=== PATIENT | male | born 1940 | race Caucasian/White ===

== ENCOUNTER 2021-06-24 09:17 | Emergency (ER) | payer MEDICARE, SELFPAY ==
[2021-06-24 09:18] VITALS: BP 174/102; PULSE 68; RESP 14; TEMP 36.2; O2SAT 98; BMI 29.4
--- NOTE | 2021-06-24 09:35 | EKG12_ITS ---
Test Reason : DIZZINESS Blood Pressure : / mmHG Vent. Rate : 066 BPM Atrial Rate : 066 BPM P-R Int : 230 ms QRS Dur : 092 ms QT Int : 416 ms P-R-T Axes : 063 026 036 degrees QTc Int : 436 ms Sinus rhythm with sinus arrhythmia with 1st degree A-V block Otherwise normal ECG Confirmed by NIC HAWKINS, MILAD ([id number]), associate entertainment editor HUMBERTO UNDERWOOD ([id number]) on 06/29/2021 9:03:12 AM Referred By: ALENA Confirmed By:MILAD LUCERO MD
--- NOTE | 2021-06-24 09:35 | CT_ITS ---
STUDY: CTA HEAD AND NECK WITH CONTRAST REASON FOR EXAM: Male, 80 years old. Hypertension. RADIATION DOSAGE (If Supplied By Facility): CTDIvol = ( 32.34 ) mGy, DLP = ( 1518.98 ) mGycm TECHNIQUE: CT angiography was performed with a multi-detector CT scanner. Data acquisition was obtained from the skull base through the vertex following intravenous administration of IV- 100 mL IsoVue 370. MIP images were reconstructed from the axial data set. Post-processing of the angiographic images was performed, with multiplanar reformation and 3D reconstruction. Individualized dose optimization techniques were used for this CT. COMPARISON: No relevant priors. FINDINGS: Normal bilateral petrous carotid arteries. There is calcified plaque formation of the right cavernous carotid artery, without a cross-sectional luminal stenosis. There is calcified plaque formation of the left cavernous carotid artery, without a cross-sectional luminal stenosis. Normal right A1 segments of the anterior cerebral artery. Normal left A1 segments of the anterior cerebral artery. Normal intact anterior communicating artery (ACOM). Normal bilateral A2 segments of the anterior cerebral arteries. Normal right M1 and M2 segments of the middle cerebral arteries, with a normal M1 bifurcation. Normal left M1 and M2 segments of the middle cerebral arteries, with a normal M1 bifurcation. Normal right posterior communicating artery (PCOM). Normal left posterior communicating artery (PCOM). Normal bilateral vertebral arteries. Normal basilar artery with a normal basilar bifurcation. The visualized bilateral superior cerebellar (SCA) arteries are normal. Normal bilateral P1, P2 and visualized P3 segments of the posterior cerebral arteries. There is no demonstrated aneurysm of the [place]. Mild degree of cerebral atrophy. Decreased bilateral periventricular attenuation in keeping with microvascular disease. Tiny bilateral calcifications of the basal ganglia. This is a normal variant. AORTIC ARCH: Normal visualized aortic arch. Normal origins of the brachiocephalic, left common carotid, and left subclavian arteries. RIGHT CAROTID ARTERIES: Normal right common carotid artery (CCA). Normal right common carotid bulb. Normal origin of the right internal carotid (ICA) artery without a hemodynamically significant stenosis. Normal visualized cervical portion of the right internal carotid artery. Normal origin of the right external carotid artery (ECA). LEFT CAROTID ARTERIES: Normal left common carotid artery (CCA). Normal left common carotid bulb. Normal origin of the left internal carotid (ICA) artery without a hemodynamically significant stenosis. Normal visualized cervical portion of the left internal carotid artery. Normal origin of the left external carotid artery (ECA). VERTEBRAL ARTERIES: Normal bilateral vertebral arteries. CT/CTA Head AND Neck W/ Contrast IMPRESSION: Cerebral atrophy. Nonstenotic atherosclerotic plaque at the level of the cavernous portions of the internal carotid arteries bilaterally. Electronically Signed: Avelino Guo MD at 10:43 EDT , Service support ,
[2021-06-24 09:36] VITALS: BP 161/95; PULSE 66; RESP 12; O2SAT 96
[2021-06-24 09:48] LABS: Absolute Lymphocyte Count 1.94 X10^3/uL (0.83-4.51); Absolute Neutrophil Count 3.3 X10^3/uL (2.0-7.7); Basophil# 0.02 X10^3/uL; Basophil% 0.3 % (0-1); Eosinophil# 0.11 X10^3/uL; Eosinophils% 1.9 % (0-5); Hematocrit 45.9 % (40-54); Hemoglobin 15.8 g/dL (13.0-16.5); Lymphocyte # 1.94 X10^3/ul (0.83-4.51); Lymphocyte % 33.6 % (19-41); Mean Corp Hgb Conc 34.4 g/dL (32-36); Mean Corpuscular Hgb 32.3 pg (27.0-32.0); Mean Corpuscular Volume 93.9 fL (80-94); Mean Platelet Vol. 8.7 fl (6.2-12.0); Monocyte% 6.9 % (0-10); NRBC Flagged by Analyzer 0 % (0-5); Neutrophil # 3.28 X10^3/uL (2.7-7.7); Platelet Count 195 K/mm3 (150-450); RBC Distribution Width CV 12.9 % (11.6-14.6); RBC Distribution Width SD 43.9 fl (35.1-43.9); Red Blood Count 4.89 M/mm3 (4.6-6.2); White Blood Count 5.8 K/mm3 (4.4-11.0)
[2021-06-24 10:02] LABS: Anion Gap 10 (5-15); BUN 14 mg/dL (7-18); BUN/Creat Ratio 14.4 RATIO (10-20); Calcium,Total 8.2 mg/dL (8.5-10.1); Chloride 106 mmol/L (98-107); Creatinine, Serum 0.97 mg/dL (0.70-1.30); EST Glomerular Filtration Rate 79 mL/min (>60); Est Glom Filt Rate - Afr Amer 96 mL/min (>60); Estimated Creatinine Clearance 63.76 ml/min; Glucose 157 mg/dL (74-106); Potassium 3.9 mmol/L (3.5-5.1); Sodium Level 139 mmol/L (136-145)
[2021-06-24] MEDS: Ondansetron 4 MG/2 ML Vial IV (10:03)
[2021-06-24 13:15] VITALS: BP 158/94; PULSE 60; RESP 18
[2021-06-24] MEDS: Meclizine HCl 25 MG Tablet PO (13:18)
[2021-06-24] MEDS: Lisinopril 40 MG Tablet PO (13:18)
--- NOTE | 2021-06-24 13:55 | ED.RN ---
pt walked with steady gait. pt states not dizzy but maybe alittle lightheaded and just doesnt feel right. dr allen aware
--- NOTE | 2021-06-24 14:06 | EX.ED.DYSGE1 ---
HPI History of Present Illness Chief Complaint: Dizziness Informant: patient and spouse/S.O. Onset/Context/Timing Onset: Days Narrative Narrative: Patient presents with vertigo. He states he has been feeling a little off the past few days when he walks, but nothing to be too concerned about. This morning after getting up out of bed he describes vertigo. He did have emesis. He states his blood pressure has been closely monitored by his PCP and they did noted to be up today. He did not take his morning blood pressure meds. Patient does report worsened symptoms when he turns his head side to side. [facility] Medical History High cholesterol HTN (hypertension) Home Medications Lipitor 06/24/21 [History Last Taken Unknown] lisinopril 06/24/21 [History Last Taken Unknown] meclizine [Antivert] 50 mg PO BID PRN #10 tab 06/24/21 [Rx Last Taken Unknown] Allergy/AdvReac Type Severity Reaction Status Date / Time No Known Allergies Allergy Verified 06/24/21 09:21 Social History Smoking Status: Never smoker ROS ROS ED Constitutional Constitutional ED: Denies chills or fever(s) Eyes Eyes: Denies change in vision ENT ENT ED: Denies sore throat Cardiovascular Cardiovascular: Denies chest pain Respiratory/Chest Respiratory/Chest: Denies cough or dyspnea Gastrointestinal Gastrointestinal: Reports nausea and vomiting; Denies abdominal pain or diarrhea Genitourinary Genitourinary ED: Denies dysuria Musculoskeletal Musculoskeletal: Denies back pain or neck pain Integumentary Denies rash Neurologic Neurologic: Denies headache(s), paresthesias or weakness Psychiatric Psychiatric: Denies anxiety or depression Allergic/Immunologic Allergic/Immunologic ED: Denies urticaria EXAM Physical Exam Const Vital Signs: 06/24/21 09:18 06/24/21 09:36 06/24/21 09:39 Temperature 97.2 F L Temperature Source Temporal Pulse Rate 68 66 Respiratory Rate 14 12 Respiratory Effort Normal Non-Labored Respiratory Pattern Normal Blood Pressure 174/102 H 161/95 H Blood Pressure Mean 126 117 Pulse Ox 98 96 Oxygen Delivery Method Room Air Room Air 06/24/21 13:15 Temperature Temperature Source Pulse Rate 60 Respiratory Rate 18 Respiratory Effort Respiratory Pattern Blood Pressure 158/94 H Blood Pressure Mean 115 Pulse Ox Oxygen Delivery Method Room Air Positive well nourished and well developed General Appearance ED: well developed HEENT Reports normocephalic, head/scalp atraumatic and moist mucous membranes Eyes PERRL and EOMs intact bilaterally Neck supple Chest Wall inspection of chest normal and palpation of chest normal Resp normal respiratory effort and clear to auscultation bilaterally Cardio regular rate and regular rhythm GI normal to inspection, nondistended, normoactive bowel sounds Palpation: soft Extremity normal to inspection Neuro oriented x3, CN's II-XII intact bilaterally and no sensory deficits noted Neuro Narrative: Normal cerebellar testing. NIH equals 0. Sensorium / Orientation: alert Motor Exam: strength 5/5 throughout Psych mental status grossly normal Skin no rashes or lesions noted MDM MDM MDM Narrative Medical decision making narrative: Lab work, EKG, CTA head and neck obtained. Lab Data Attestation: I reviewed the patient's lab results. Labs: Laboratory Results - last 24 hr 06/24/21 06/24/21 09:35 09:35 WBC 5.8 RBC 4.89 Hgb 15.8 Hct 45.9 MCV 93.9 MCH 32.3 H MCHC 34.4 RDW Std Deviation 43.9 RDW Coeff of [place] 12.9 Plt Count 195 MPV 8.7 Immature Gran % (Auto) 0.300 Neut % (Auto) 57.0 Lymph % (Auto) 33.6 [place] % (Auto) 6.9 Eos % (Auto) 1.9 Baso % (Auto) 0.3 Absolute Neuts (auto) 3.3 Absolute Lymphs (auto) 1.94 Nucleated RBC % 0 Sodium 139 Potassium 3.9 Chloride 106 Carbon Dioxide 23.0 Anion Gap 10 BUN 14 Creatinine 0.97 Estim Creat Clear Calc 63.76 Est GFR (MDRD) Af Amer 96 Est GFR (MDRD) Non-Af 79 BUN/Creatinine Ratio 14.4 Glucose 157 H Calcium 8.2 L Radiography Diagnostic Testing: Radiology Impression Head/Neck CTA 06/24/21 09:35 IMPRESSION: Cerebral atrophy. Nonstenotic atherosclerotic plaque at the level of the cavernous portions of the internal carotid arteries bilaterally. Electronically Signed: Avelino Guo MD at 10:43 EDT , Service support , EKG Initial EKG: Attestation: I personally reviewed and interpreted this EKG as follows: Interpretation: Sinus Rhythm (Sinus at 66 with no acute ischemia.) Treatment and Re-Evaluation Comments:: Patient was given Zofran for nausea. Work-up is unremarkable. Patient was given a dose of p.o. Antivert and his normal blood pressure medication. Patient is able to get up and ambulate in the emergency room. He states he does not quite feel normal but does not feel dizzy or off balance. Patient will be given prescription for Antivert and return instructions are provided. Discharge Plan Triage Chief Complaint: Dizziness ED Provider: Estelita Davidson Dx/Rx/DC Orders Clinical Impression: Benign positional vertigo Instructions: ED BPV Vertigo Prescriptions: New Antivert 50 mg tablet 50 mg PO BID PRN (Reason: dizziness) Qty: 10 RF: 0 No Action Lipitor RF: 0 lisinopril RF: 0 Primary Care Provider: Isaac Suh Referrals: Isaac Suh MD [Primary Care Provider] - 1-2 Weeks Disposition Disposition: Home, Self Care Discharge Date/Time: 06/24/21 14:58
[2021-06-24 14:56] VITALS: BP 145/86; PULSE 59; RESP 18
== END 2021-06-24 14:58 | disposition home or self-care (01) ==
PROVIDERS: Emergency Provider Emergency Medicine; PCP Internal Medicine
DX: H81.10 Benign paroxysmal vertigo, unspecified ear (principal); I10 Essential (primary) hypertension; E78.00 Pure hypercholesterolemia, unspecified; Z79.899 Other long term (current) drug therapy
CPT/HCPCS: 70496; 70498; 80048; 85025; 93005; 96374; 99285; Q9967; A4216; J2405